=== PATIENT | male | born 1955 | race Caucasian/White ===

== ENCOUNTER 2020-08-23 15:42 | Emergency (ER) | payer MEDICARE, SELFPAY ==
[2020-08-23 15:46] VITALS: BP 125/77; PULSE 99; RESP 16; TEMP 36.6; O2SAT 100; BMI 24.4
--- NOTE | 2020-08-23 16:23 | DI.RAD.S_ITS ---
PROCEDURE: XR TIBIA FIBULA LT 2V INDICATIONS: tibia pain, no known trauma TECHNIQUE: 2 views of the tibia and fibula were acquired. COMPARISON: None. FINDINGS: Bones: No acute fractures or dislocations. No suspicious bony lesions. Soft tissues: No suspicious soft tissue calcifications or masses. IMPRESSION: No acute osseous abnormality. If clinical suspicion and/or symptoms persist, additional imaging with repeat plain films, or advanced imaging (e.g. CT, MRI) may be helpful for further assessment. Dictated by: Brian Finney M.D. on 08/23/2020 at 15:47 Approved by: Brian Finney M.D. on 08/23/2020 at 15:49
--- NOTE | 2020-08-23 16:23 | DI.US.S_ITS ---
PROCEDURE: US PERIPH VENOUS LOW EXTREM LT INDICATIONS: pain, swelling left leg TECHNIQUE: Real-time imaging, as well as color and pulse Doppler interrogation, were performed of the lower extremity deep veins from the inguinal ligament to the popliteal fossa. COMPARISON: None. FINDINGS: The common femoral, femoral and popliteal veins are normally compressible, and free of intraluminal thrombus. Color and pulse Doppler demonstrate normal phasic intraluminal flow. There is normal augmentation response to distal compression maneuver. IMPRESSION: Negative for deep venous thrombosis. Dictated by: James Sharp M.D. on 08/23/2020 at 16:31 Approved by: James Sharp M.D. on 08/23/2020 at 16:31
[2020-08-23] MEDS: KETOROLAC 60 MG/2 ML VIAL 30 MG IM (16:43)
[2020-08-23 16:48] VITALS: BP 110/61; PULSE 76; RESP 18; O2SAT 96
[2020-08-23] MEDS: LIDOCAINE PATCH 1 EACH ADH..PATCH TOP (18:11)
--- NOTE | 2020-08-23 18:16 | ED.LOWEXIN ---
HPI - Extremity Injury (Lower) <NAA Serna - Last Filed: 08/23/20 20:12> General Chief Complaint: Extremity Injury, Lower Stated Complaint: left leg possible DVT Time Seen by Provider: 08/23/20 16:07 Source: patient Mode of arrival: Ambulatory Limitations: no limitations History of Present Illness HPI Narrative: The patient is a 65-year-old male who denies pertinent medical history presents with a chief complaint of left-sided knee pain ongoing for the past 6 or 8 weeks. He states no specific trauma, he rather stays very active walking, skiing biking etcetera. He states it hurts on the outside of his left knee. He has tried occasional Tylenol, occasional Motrin and occasional heat/ice for the pain. It feels better than he becomes more active in the neck it is worse again. Denies any recent episodes of immobility, denies any recent hospitalizations or flights. Denies any history of blood clots. Has not followed up with anybody, but states that [place] [address], so he thought he would swing by the emergency department for an evaluation. Related Data Home Medications Medication Instructions Recorded Confirmed ASCORBIC ACID (#VITAMIN C) 500 mg PO #0 12/06/10 [FISH OIL] #0 12/06/10 ASPIRIN (#ASPIRIN) 81 mg PO EVERY OTHER DAY #0 04/11/11 Lysine (#L-LYSINE) 500 mg PO QDAY #0 02/28/12 Previous Rx's Medication Instructions Recorded azithromycin [Zithromax] 1,000 mg PO QDAY #4 02/28/12 cefixime [Suprax] 400 mg PO QDAY 1 Days #0 02/28/12 ketorolac 10 mg PO TID PRN #15 tab 08/23/20 lidocaine 1 patch TOPICAL DAILY PRN #15 ea 08/23/20 Allergies Allergy/AdvReac Type Severity Reaction Status Date / Time No Known Drug Allergies Allergy Verified 08/23/20 15:54 Review of Systems <NAA Serna - Last Filed: 08/23/20 20:12> Review of Systems Narrative: GENERAL: Denies chills, fatigue, malaise, fever, sweats. HEENT: Denies sinus pain, ear pain, sore throat, difficulty swallowing, dizziness. RESPIRATORY: Denies dyspnea, cough, wheezing, hemoptysis, sputum. CARDIOVASCULAR: Denies chest pain, palpitations, orthopnea, edema, GASTROINTESTINAL: Denies nausea, vomiting, abdominal pain, diarrhea, constipation, melena. : Denies dysuria, frequency, incontinence, hematuria, urinary retention. MUSCULOSKELETAL: See HPI SKIN: Denies rash, skin lesions, or other NEUROLOGIC: Denies weakness, headache, numbness, change in speech, confusion, seizures, incoordination. PSYCHIATRIC: No concerning psychosocial issues. 12 point review of systems is negative except for those stated above Patient History <NAA Serna - Last Filed: 08/23/20 20:12> Social History Smoking Status: Current some day smoker Smoking Status: Current some day smoker alcohol intake frequency: a few times a week Substance Use Type: marijuana Exam <NAA Serna - Last Filed: 08/23/20 20:12> Narrative Exam Narrative: GENERAL: This is a well-nourished, well-developed patient, in no acute distress HEAD: Atraumatic. Normocephalic. No temporal or scalp tenderness. EYES: Pupils equal round and reactive. Extraocular motions intact. No scleral icterus. No injection or drainage. ENT: Nose without bleeding, purulent drainage or septal hematoma. Wearing a. Airway patent. NECK: Trachea midline. No JVD or lymphadenopathy. Supple, nontender, no meningeal signs. CARDIOVASCULAR: Regular rate and rhythm RESPIRATORY: No cough. No increased respiratory effort. No accessory muscle use. EXTREMITIES: Patient able to lift left leg off of stretcher, flex left knee to less than 90?. Positive pedal pulses. No visual abnormality left knee. Pain to palpation noted distal, lateral aspect lateral femoral epicondyle, left knee. No erythema overlying abrasion noted BACK: Nontender without deformity or crepitance. No flank tenderness. NEURO: AOx3. SKIN: No rash or erythema on visible skin. No overlying erythema laceration or abrasion noted. Initial Vital Signs Initial Vital Signs: Vital Signs Temperature 97.8 F 08/23/20 15:46 Pulse Rate 99 H 08/23/20 15:46 Respiratory Rate 16 08/23/20 15:46 Blood Pressure 125/77 08/23/20 15:46 Pulse Oximetry 100 08/23/20 15:46 <Brandon Ferrell DO - Last Filed: 08/23/20 20:20> Initial Vital Signs Initial Vital Signs: Vital Signs Temperature 97.8 F 08/23/20 15:46 Pulse Rate 99 H 08/23/20 15:46 Respiratory Rate 16 08/23/20 15:46 Blood Pressure 125/77 08/23/20 15:46 Pulse Oximetry 100 08/23/20 15:46 Scores <NAA Serna - Last Filed: 08/23/20 20:12> GCS [place] coma scale eye opening: Spontaneous [place] coma scale verbal response: Orientated [place] coma scale motor response: Obey commands [place] coma scale total score: 15 Course <NAA Serna - Last Filed: 08/23/20 20:12> Orders Ordered: ED Orders 08/23/20 16:23 periph venous low extrem lt Stat XR tibia fibula LT 2V Stat Discontinued Medications Ketorolac Tromethamine (Ketorolac 60 Mg/2 Ml Vial) 30 mg IM NOW ONE Stop: 08/23/20 16:24 Last Admin: 08/23/20 16:43 Dose: 30 mg Documented by: SU Lidocaine (Lidocaine Patch 1 Each Adh..Patch) 1 each TOP NOW ONE Stop: 08/23/20 18:05 Last Admin: 08/23/20 18:11 Dose: 1 each Documented by: CELIA Vital Signs Vital signs: Vital Signs - 8 hr 08/23/20 15:46 08/23/20 16:48 08/23/20 18:27 Temperature 97.8 F Pulse Rate 99 H 76 80 Respiratory Rate 16 18 18 Blood Pressure 125/77 110/61 135/75 Pulse Oximetry 100 96 98 <Brandon Ferrell DO - Last Filed: 08/23/20 20:20> Orders Ordered: ED Orders 08/23/20 16:23 periph venous low extrem lt Stat XR tibia fibula LT 2V Stat Discontinued Medications Ketorolac Tromethamine (Ketorolac 60 Mg/2 Ml Vial) 30 mg IM NOW ONE Stop: 08/23/20 16:24 Last Admin: 08/23/20 16:43 Dose: 30 mg Documented by: SU Lidocaine (Lidocaine Patch 1 Each Adh..Patch) 1 each TOP NOW ONE Stop: 08/23/20 18:05 Last Admin: 08/23/20 18:11 Dose: 1 each Documented by: CELIA Vital Signs Vital signs: Vital Signs - 8 hr 08/23/20 15:46 08/23/20 16:48 08/23/20 18:27 Temperature 97.8 F Pulse Rate 99 H 76 80 Respiratory Rate 16 18 18 Blood Pressure 125/77 110/61 135/75 Pulse Oximetry 100 96 98 MDM - Extremity Injury (Lower) <NAA Serna - Last Filed: 08/23/20 20:12> Imaging Data US - DVT: Radiologist's Impression: [id number] [address] [place] [id number] ReportSigned Patient: Brandon See RMR#: [id number]: [id number]:[id number]/Sex: 65 / MDate of Service: 08/23/20Loc: EDAccession Number: [id number] Procedure: US periph venous low extrem lt Ordering Provider: Amy Cote PROCEDURE: US PERIPH VENOUS LOW EXTREM LT INDICATIONS: pain, swelling left leg TECHNIQUE: Real-time imaging, as well as color and pulse Doppler interrogation, were performed of the lower extremity deep veins from the inguinal ligament to the popliteal fossa. COMPARISON: None. FINDINGS: The common femoral, femoral and popliteal veins are normally compressible, and free of intraluminal thrombus. Color and pulse Doppler demonstrate normal phasic intraluminal flow. There is normal augmentation response to distal compression maneuver. IMPRESSION: Negative for deep venous thrombosis. Dictated by: James Sharp M.D. on 08/23/2020 at 16:31 Approved by: James Sharp M.D. on 08/23/2020 at 16:31 Extremity x-ray #1: Radiologist's Impression: [facility] [address] [place] [address] [id number] ReportSigned Patient: Brandon See RMR#: [id number]: [id number]:[id number]/Sex: 65 / MDate of Service: 08/23/20Loc: EDAccession Number: [id number] Procedure: XR tibia fibula LT 2V Ordering Provider: [place],Amy PERINATAL TECH-BC PROCEDURE: XR TIBIA FIBULA LT 2V INDICATIONS: tibia pain, no known trauma TECHNIQUE: 2 views of the tibia and fibula were acquired. COMPARISON: None. FINDINGS: Bones: No acute fractures or dislocations. No suspicious bony lesions. Soft tissues: No suspicious soft tissue calcifications or masses. IMPRESSION: No acute osseous abnormality. If clinical suspicion and/or symptoms persist, additional imaging with repeat plain films, or advanced imaging (e.g. CT, MRI) may be helpful for further assessment. Dictated by: Brian Finney M.D. on 08/23/2020 at 15:47 Approved by: Brian Finney M.D. on 08/23/2020 at 15:49 [facility] Narrative Medical decision making narrative: The patient is a 65-year-old male who presents with a chief complaint of ongoing left lower leg pain in the outside of his knee for several weeks to months. DVT ultrasound was taken given patient concerns, as well as age, which shows no DVT. No obvious bony injury. However patient's pain correlates with common IT band syndrome site. This correlates with history of being active etcetera. Discussed at length NSAIDs, patient feels improved after Toradol in the emergency department, lidocaine patches as well as rice and follow up with primary care provider in the next few days. Patient was given contact information [facility] health human resources leader. Discussed coming back to ER for acute concerns. Discussed resting, not combining Ketorolac with any other NSAIDs, follow-up with primary care provider. Patient has no questions or concerns upon discharge states understanding return precautions as well as follow-up care. He has been neurovascularly intact throughout stay in the ER Discharge Plan Departure Patient Disposition: Home Clinical Impression: Iliotibial band syndrome affecting left lower leg Leg pain Qualifiers: Laterality: left Qualified Code(s): M79.605 - Pain in left leg Instructions: DI for Leg Pain, DI for Iliotibial Band Syndrome Activity Restrictions/Additional Instructions: Thank you for trusting us with your care today. As discussed, your ultrasound came back with no DVT. This is very reassuring. As I discussed, your x-ray shows no acute fracture. This does not rule out a soft tissue injury such as a ligament or tendon injury. It is important that you follow up with primary care provider, especially if worsening or no improvement. There can be fractures that did not show up on initial x-ray. Your pain does correlates with ITB band syndrome. The ITB band is a fiberous band that runs along the lateral aspect of the thigh from the iliac crest, to the proximal tibia. ID band syndrome occurs from overuse. I have included a handout on this syndrome. Please follow-up with primary care provider. I have given you contact information to the [facility] human resources leader they can help you find a primary care provider accepting new patients. I sent 2 prescriptions to [facility] in [place]. I have given you a prescription of ketorolac or Toradol. This is an NSAID. Do not combine it with other NSAIDs such as Aleve or ibuprofen. I suggest taking it with some food, as it can irritate your stomach. I have also given you prescription for lidocaine patches. These patches can stay on for 12 hours and then, off for 12 hours. Do not use heat over the lidocaine patch. Please come back to the emergency department for any acute concerns. Prescriptions: New ketorolac 10 mg tablet 10 mg PO TID PRN (Reason: pain) Qty: 15 RF: 0 lidocaine 5 % adhesive patch,medicated 1 patch topical DAILY PRN (Reason: pain) Qty: 15 RF: 0 No Action [FISH OIL] Qty: 0 RF: 0 ASCORBIC ACID (#VITAMIN C) 500 mg PO Qty: 0 RF: 0 ASPIRIN (#ASPIRIN) 81 mg PO EVERY OTHER DAY Qty: 0 RF: 0 Lysine (#L-LYSINE) 500 mg PO QDAY Qty: 0 RF: 0 azithromycin [Zithromax] 250 MG tablet 1,000 mg PO QDAY Qty: 4 RF: 0 cefixime [Suprax] 100 MG/5 ML suspension for reconstitution 400 mg PO QDAY 1 Days Qty: 0 RF: 0 Referrals: [facility] [Outside] Miscellaneous,Doctor, [Primary Care Provider] - <Brandon Ferrell DO - Last Filed: 08/23/20 20:20> Cosign ED Attending Cosignature Attestation: Dr Ferrell Co-Sign Statement: I was available for consultation during this patient's emergency department visit. This chart is signed by myself for administrative purposes only. I did not have direct contact with this patient during this visit. They were seen independently by the APC.
[2020-08-23 18:27] VITALS: BP 135/75; PULSE 80; RESP 18; O2SAT 98
== END 2020-08-23 18:30 | disposition home or self-care (01) ==
PROVIDERS: Emergency Provider Nurse Practitioner Family
DX: M25.562 Pain in left knee (principal); M76.32 Iliotibial band syndrome, left leg
CPT/HCPCS: 73590; 93971; 96372; 99283; 99284; J1885